=== PATIENT | male | born 1945 | race Caucasian/White ===

== ENCOUNTER → 2016-06-26 | Outpatient (CLI) | payer OTHER, MEDICARE | LOC: FIMAGING 16:13 | PROVIDERS: ATTEND Registered Nurse | DX: M51.36 Other intervertebral disc degeneration, lumbar region (principal) ==

== ENCOUNTER → 2016-07-09 | Outpatient (CLI) | payer OTHER, MEDICARE | LOC: FIMAGING 16:12 | PROVIDERS: ATTEND Registered Nurse | DX: M47.14 Other spondylosis with myelopathy, thoracic region (principal); K44.9 Diaphragmatic hernia without obstruction or gangrene ==

== ENCOUNTER 2016-07-25 08:45 | Inpatient (IN) | payer OTHER, MEDICARE ==
[2016-07-25 09:17] LABS: % IMMATURE GRANULYOCYTES 0.4 % (0.0-1.1); ABSOLUTE IMMATURE GRANULOCYTES 0.06 10^3/uL (0.00-0.10); ADD DIFF? NO; ADD MORPH? NO; ADD SCAN? NO; ATYPICAL LYMPHOCYTE FLAG 0 (0-99); FRAGMENT RBC FLAG 0 (0-99); HEMATOCRIT 44.3 % (40.0-51.0); HEMOGLOBIN 15.9 g/dL (13.7-17.5); LEFT SHIFT FLG 20 (0-99); LIPEMIA HEMOLYSIS FLAG 90 (0-99); MEAN CELL HEMOGLOBIN CONCENTR. 35.9 g/dL (32.4-36.7); MEAN CELL VOLUME 89.1 fL (81.5-99.8); MEAN PLATELET VOLUME 9.3 fL (8.7-11.7); PLATELET CLUMPS FLAG 0 (0-99); PLATELET COUNT 178 10^3/uL (150-400); RED BLOOD CELL COUNT 4.97 10^6/uL (4.40-6.38)
[2016-07-25 09:36] LABS: ANION GAP 12 mEq/L (8-16); CALCIUM 9.5 mg/dL (8.5-10.4); CARBON DIOXIDE 25 mEq/l (22-31); CHLORIDE 101 mEq/L (97-110); CREATININE 0.8 mg/dL (0.7-1.3); GLOMERULAR FILTRATION RATE > 60; GLUCOSE 92 mg/dL (70-100); SODIUM 138 mEq/L (134-144)
--- NOTE | 2016-07-25 09:40 | EDPHY ---
H & P Stated Complaint: FEVER BACK PAIN, WAS TO SEE DR RHODES. Time Seen by Provider: 07/25/16 09:02 HPI/ROS: CHIEF COMPLAINT: Fever, nausea, lethargy HISTORY OF PRESENT ILLNESS: The patient has a complicated past medical history with a reported history of a chronic tick borne infection. The patient presents to the ED today with complaints of fever, nausea and lethargy for the past 2 days. The patient denies cough, sore throat, dysuria or vomiting. The patient does have a history of a chronic tick borne infection by his report. Patient reportedly is intolerance antibiotics secondary to his propensity to develop a febrile antibiotic reaction. REVIEW OF SYSTEMS: A comprehensive 10 point review of systems is otherwise negative aside from elements mentioned in the history of present illness. Source: Patient Exam Limitations: No limitations - Personal History Current Tetanus/Diphtheria Vaccine: Yes Current Tetanus Diphtheria and Acellular Pertussis (TDAP): Yes - Medical/Surgical History Hx Asthma: No Hx Chronic Respiratory Disease: No Hx Diabetes: No Hx Cardiac Disease: No Hx Renal Disease: No Hx Cirrhosis: No Hx Alcoholism: No Hx HIV/AIDS: No Hx Splenectomy or Spleen Trauma: No Other PMH: Lyme Disease, HIATAL HERNIA. HERNIA REPAIR, clavicle fracture - Social History Smoking Status: Never smoked - Physical Exam Exam: General Appearance: Alert, no distress Eyes: Pupils equal and round no pallor or injection ENT, Mouth: Dry mucous membranes Respiratory: There are no retractions, lungs are clear to auscultation Cardiovascular: Regular rate and rhythm Gastrointestinal: Abdomen is soft and nontender, no masses, bowel sounds normal Neurological: A&O, normal motor function, normal sensory exam, normal cranial nerves Skin: Warm and dry, no rashes Musculoskeletal: Neck is supple nontender Extremities: symmetrical, full range of motion Constitutional: Initial Vital Signs Temperature (C) 37.9 C 07/25/16 08:48 Heart Rate 103 H 07/25/16 08:48 Respiratory Rate 18 07/25/16 08:48 Blood Pressure 97/67 L 07/25/16 08:48 O2 Sat (%) 91 L 07/25/16 08:48 O2 Delivery Mode Nasal Cannula O2 (L/minute) 2 Allergies/Adverse Reactions: No Known Allergies Allergy (Unverified 09/26/13 14:24) Home Medications: Medication Instructions Recorded Bactrim DS 09/26/13 Hydroxy Chloriphen 09/26/13 Mepron 150 MG/ML 60 ML (RX) 09/26/13 Nystatin 09/26/13 Zithromax 09/26/13 oxyCODONE/APAP [Percocet 1 - 2 tab PO Q4H PRN #20 tab 09/26/13 5325 (RX)] Medical Decision Making ED Course/Re-evaluation: The patient presents to the ED with an acute febrile illness. He has a fairly complicated past history with a reported history of a chronic tick-borne infection. The patient's workup in the emergency department does demonstrate leukocytosis. The patient is noted to have a low-grade fever the patient is noted to have no significant vital sign abnormalities. I did consult with Dr. Stanton Lombardi who saw the patient from Infectious Disease. At this point time the patient presents to the ED with a fever without source. The patient will be admitted to the hospital for observation this evening. No antibiotics will be started per Infectious Disease recommendation. We will follow his fever curve and blood cultures this evening. The patient will be admitted to the [facility] under the care of the hospitalist. The patient will be admitted by Dr. Serrano. Differential Diagnosis: Differential diagnosis considered includes bacteremia, urinary tract infection, parasitemia, medication reaction, viral syndrome - Data Points Laboratory Results: Laboratory Results 07/25/16 09:05 07/25/16 09:05 07/25/16 07/25/16 07/25/16 10:05 10:00 09:05 WBC RBC Hgb Hct MCV MCH MCHC RDW Plt Count MPV Neut % (Auto) Lymph % (Auto) [place] % (Auto) Eos % (Auto) Baso % (Auto) Nucleat RBC Rel Count Absolute Neuts (auto) Absolute Lymphs (auto) Absolute Monos (auto) Absolute Eos (auto) Absolute Basos (auto) Absolute Nucleated RBC Immature Gran % Immature Gran # VBG Lactic Acid 1.1 mmol/L mmol/L (0.7-2.1) Sodium Potassium Chloride Carbon Dioxide Anion Gap BUN Creatinine Estimated GFR Glucose Calcium Total Bilirubin 0.7 mg/dL mg/dL (0.1-1.4) Conjugated Bilirubin 0.4 mg/dL mg/dL (0.0-0.5) Unconjugated Bilirubin 0.3 mg/dL mg/dL (0.0-1.1) AST 34 IU/L IU/L (17-59) ALT 40 IU/L IU/L (21-72) Alkaline Phosphatase 46 IU/L IU/L (38-126) Total Protein 6.5 g/dL g/dL (6.3-8.2) Albumin 4.0 g/dL g/dL (3.5-5.0) Urine Color COLIN Urine Appearance HAZY Urine pH 5.0 (5.0-7.5) Ur Specific [place] 1.014 (1.002-1.030) Urine Protein NEGATIVE (NEGATIVE) Urine Ketones TRACE H (NEGATIVE) Urine Blood NEGATIVE (NEGATIVE) Urine Nitrate NEGATIVE (NEGATIVE) Urine Bilirubin NEGATIVE (NEGATIVE) Urine Urobilinogen NEGATIVE EU EU (0.2-1.0) Ur Leukocyte Esterase NEGATIVE (NEGATIVE) Ur Culture Indicated? NOT INDICATED (NI) Urine Glucose NEGATIVE (NEGATIVE) 07/25/16 07/25/16 09:05 09:05 WBC 15.48 10^3/uL H 10^3/uL (3.80-9.50) RBC 4.97 10^6/uL 10^6/uL (4.40-6.38) Hgb 15.9 g/dL g/dL (13.7-17.5) Hct 44.3 % % (40.0-51.0) MCV 89.1 fL fL (81.5-99.8) MCH 32.0 pg pg (27.9-34.1) MCHC 35.9 g/dL g/dL (32.4-36.7) RDW 13.0 % % (11.5-15.2) Plt Count 178 10^3/uL 10^3/uL (150-400) MPV 9.3 fL fL (8.7-11.7) Neut % (Auto) 93.3 % H % (39.3-74.2) Lymph % (Auto) 4.1 % L % (15.0-45.0) [place] % (Auto) 1.7 % L % (4.5-13.0) Eos % (Auto) 0.3 % L % (0.6-7.6) Baso % (Auto) 0.2 % L % (0.3-1.7) Nucleat RBC Rel Count 0.0 % % (0.0-0.2) Absolute Neuts (auto) 14.45 10^3/uL H 10^3/uL (1.70-6.50) Absolute Lymphs (auto) 0.63 10^3/uL L 10^3/uL (1.00-3.00) Absolute Monos (auto) 0.26 10^3/uL L 10^3/uL (0.30-0.80) Absolute Eos (auto) 0.05 10^3/uL 10^3/uL (0.03-0.40) Absolute Basos (auto) 0.03 10^3/uL 10^3/uL (0.02-0.10) Absolute Nucleated RBC 0.00 10^3/uL 10^3/uL (0-0.01) Immature Gran % 0.4 % % (0.0-1.1) Immature Gran # 0.06 10^3/uL 10^3/uL (0.00-0.10) VBG Lactic Acid Sodium 138 mEq/L mEq/L (134-144) Potassium 4.0 mEq/L mEq/L (3.5-5.2) Chloride 101 mEq/L mEq/L (97-110) Carbon Dioxide 25 mEq/l mEq/l (22-31) Anion Gap 12 mEq/L mEq/L (8-16) BUN 19 mg/dL mg/dL (7-23) Creatinine 0.8 mg/dL mg/dL (0.7-1.3) Estimated GFR > 60 Glucose 92 mg/dL mg/dL (70-100) Calcium 9.5 mg/dL mg/dL (8.5-10.4) Total Bilirubin Conjugated Bilirubin Unconjugated Bilirubin AST ALT Alkaline Phosphatase Total Protein Albumin Urine Color Urine Appearance Urine pH Ur Specific [place] Urine Protein Urine Ketones Urine Blood Urine Nitrate Urine Bilirubin Urine Urobilinogen Ur Leukocyte Esterase Ur Culture Indicated? Urine Glucose Medications Given: Discontinued Medications Sodium Chloride (Ns) 1,000 mls @ 0 mls/hr IV ONCE ONE PRN Reason: Wide Open Stop: 07/25/16 10:01 Last Admin: 07/25/16 10:00 Dose: 1,000 mls Sodium Chloride (Ns) 1,000 mls @ 0 mls/hr IV ONCE ONE PRN Reason: Wide Open Stop: 07/25/16 10:44 Last Admin: 07/25/16 10:47 Dose: 1,000 mls Departure - Departure Disposition: [facility] Inpatient Acute Clinical Impression: Febrile illness, acute Condition: Good Referrals: Jonathan Franco DO [Primary Care Provider] - As per Instructions
[2016-07-25] MEDS ORDERED: NS 1,000 ML IV ONE ×2 (10:00→10:43)
[2016-07-25 10:06] LABS: COLOR AMBER; LEUKOCYTE ESTERASE,URINE NEGATIVE (NEGATIVE); NITRITE,URINE NEGATIVE (NEGATIVE)
[2016-07-25 10:34] LABS: BILIRUBIN,TOTAL 0.7 mg/dL (0.1-1.4); BILIRUBIN-CONJUGATED 0.4 mg/dL (0.0-0.5); BILIRUBIN-UNCONJUGATED 0.3 mg/dL (0.0-1.1); TOTAL PROTEIN 6.5 g/dL (6.3-8.2)
[2016-07-25] MEDS: HYDROmorphONE/DILAUDID 1 MG/ML SYR IVP PRN ×3 (14:22→21:25)
[2016-07-25] MEDS: oxyCODONE IR 5 MG TAB PO SCH ×2 (15:03→21:24)
--- NOTE | 2016-07-25 16:31 | GCON ---
[f rep st] CONSULTATION INPATIENT INFECTIOUS DISEASE CONSULTATION REFERRING PHYSICIAN: Unruly Al MD REASON FOR REFERRAL: Rigors and fever. HISTORY OF PRESENT ILLNESS: Patient is a 70-year-old male who [facility] at 9:40. Patient related having 24 hours of fever, lethargy, nausea, an d rigors. He denies any significant respiratory symptoms or urinary symptoms. The history is compl icated by a chronic overlay of perceived long-term Lyme disease and chronic bartonellosis and babesi osis. He is not on any antibiotics for these offered diagnoses due to the fact that he has multiple antibiotic sensitivities. 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 The patient denies any focal symptoms or pain. He is very nervous about having to require an tibiotic use as he is worried that antibiotics themselves will cause a fatal reaction. PAST MEDICAL HISTORY: 1. "Chronic Lyme disease and associated tick borne illnesses.". 2. Multiple antibiotic sensitivities. 3. Degenerative disk disease and kyphosis of the spine. 4. Severe hiatal hernia. PAST SURGICAL HISTORY: 1. Status post ORIF of clavicle fracture. 2. Status post hernia repair. ANTIBIOTICS: None currently. ALLERGIES: The patient has no antibiotic allergies listed although he claims severe sensitivity to all antibiotics tried. SOCIAL HISTORY: Patient is . No significant tobacco, alcohol, or drug use noted. FAMILY HISTORY: Reviewed but noncontributory. REVIEW OF SYSTEMS: Other than that detailed above in history of present illness, comprehensive 10-s ystem review is negative. PHYSICAL EXAMINATION: VITAL SIGNS: Temperature maximum is 37, 9, temperature current is 36.9, hear t rate is 77, respiratory rate is 20, blood pressure is 109/65. GENERAL: Patient is a well-formed, well-nourished, older male in no acute distress. He is mildly toxic in appearance. He is alert an d oriented x3. He is pleasant in demeanor. HEENT: Normocephalic for age. Atraumatic. No scleral icterus. No oral lesion or drainage from the nares. Eyes: Lids and conjunctivae are within normal limits. Pupils are equal, round, bilaterally. NECK: Supple without meningismus. LUNGS: Clear to auscultation bilaterally with good effort. HEART: Regular rate and rhythm. No murmur, rub, or gallop heard. No significant peripheral edema. ABDOME N: Soft, nontender, no masses. SKIN: Warm and dry to the touch. No rash or lesions seen. MUSCUL OSKELETAL: No muscle tenderness is noted. No joint enlargement, effusion, or arthritis is seen. N EURO: Cranial nerves 2-12 seem to be intact. Peripheral sensation seems intact in extremities. LABORATORY DATA: The patient has a CBC dated 07/25/2016, shows a white blood cell count of 15.5, he moglobin of 15.9, hematocrit of 44.3, platelet count 178. Differential is left shifted with 93% seg mented neutrophils. Serum chemistries on 07/25/2016 are all within normal limits. AST is 34, ALT i s 40, creatinine is 0.8. Urinalysis on 07/25/2016 is normal apart from a trace amount of urine keto jacqueline. Venous lactic acid is with normal at 1.1. MICROBIOLOGIC DATA: Patient has blood cultures dated 07/25/2016, which are pending. ASSESSMENT: Fever and rigors, likely a viral syndrome but of unclear etiology. At this point given the patient's symptoms and anxieties, will admit for observation. Would be interested to see if th e patient has positive blood cultures indicating an occult bacteremia how we will be able to convinc e the patient to be treated with antibiotics for that. We will address this problem if it comes abo az. In the meantime, we will control symptoms and monitor his vital signs. PLAN: 1. Symptom control. 2. Follow test results and blood culture results. 3. No empiric antibiotics. /[id number]/MODL
[2016-07-25] MEDS ORDERED: NON-FORMULARY NEW DRUG (Zolpidem Tartrate [Ambien 10 Mg] 10 MG) PO PRN (17:14)
[2016-07-25] MEDS ORDERED: ONDANSETRON 4 MG/2 ML VIAL IVP PRN (17:16)
[2016-07-25] MEDS ORDERED: ACETAMINOPHEN 325 MG TAB PO PRN (17:16)
[2016-07-25] MEDS ORDERED: ZOLPIDEM TARTRATE 5 MG TAB PO PRN (17:21)
[2016-07-25] MEDS ORDERED: NYSTATIN SUSP 500000 UNIT/5 ML UDCUP PO SCH (17:30)
--- NOTE | 2016-07-25 18:04 | PDGENHP ---
History and Physical - Chief Complaint Fever, Rigors, Body Aches - History of Present Illness This is a 70 yo male who presented to the ED reporting fever of 102, Rigors, and generalized pain and fatigue. He was evaluated by ID and is being admitted for observation. In the ED a UA was unremarkable. CXR was not obtained as he is on RA and no Resp sxs. CBC was consistent with Leukocytosis. He has been afebrile since arriving here. He reports a long hx of lyme disease, bartonellosis, and babesiosis which he and his report they self diagnosed. He gets his care from Dr. Mell oslis in [place]. He reports multiple antibiotic sensitivities. He denies CP, SOB, cough, leg swelling, palpitations, n/v/d, diaphoresis, abd pain, urinary sx's, flank pain. He was not started on abx. He reports generalized pain which is more severe than his usual chronic pain. It is generalized. He cannot localize it. PMHx: Reported lyme disease, bartonellosis, and babesiosis. Antibiotic sensitivity Hiatal hernia Depression Insomnia Adrenal Insufficiency Chronic Pain syndrome PSHx: ORIF of clavicle fracture Hernia repari Soc: No T/E/I FmHx: reviewed but not contributory All/Meds: reviewed, see med rec Labs: Leukocytosis, UA negative History Information - Allergies/Home Medication List Allergies/Adverse Reactions: No Known Allergies Allergy (Unverified 09/26/13 14:24) Home Medications: Nystatin [Mycostatin] 1,000,000 unit PO BID 09/26/13 [Last Taken 07/24/16] Citalopram [CeleXA] 20 mg PO DAILY 07/25/16 [Last Taken 07/24/16] Herbals/Supplements -Info Only 1 ea PO DAILY 07/25/16 [Last Taken Unknown] Hydrocortisone [Cortef 10 mg (*)] 10 mg PO DAILY 07/25/16 [Last Taken 07/24/16] LORazepam [Ativan (*)] 0.5 mg PO BID PRN 07/25/16 [Last Taken 07/24/16] Magnesium Hydroxide [Milk of Magnesia] 30 ml PO HS 07/25/16 [Last Taken 07/24/16 ] Nature-Throid T3 48.75mg 48.75 mg PO DAILY 07/25/16 [Last Taken 07/24/16] Oxycodone HCl [Dazidox] 10 mg PO TID 07/25/16 [Last Taken 07/24/16] Zolpidem Tartrate [Ambien 10 mg] 10 mg PO HS PRN 07/25/16 [Last Taken Unknown] traZODone [traZODONE 50MG (*)] 100 mg PO HS 07/25/16 [Last Taken Unknown] I have personally reviewed and updated: family history, medical history, social history, surgical history - Social History Smoking Status: Never smoked Review of Systems ROS: 10pt was reviewed & negative except for what was stated in HPI & below Physical Exam Temp Pulse Resp BP Pulse Ox 36.9 C 77 20 109/65 93 07/25/16 14:04 07/25/16 14:04 07/25/16 14:04 07/25/16 14:04 07/25/16 14:04 Constitutional: no apparent distress, appears nourished, not in pain Eyes: PERRL, anicteric sclera, EOMI Ears, Nose, Mouth, Throat: moist mucous membranes, hearing normal, ears appear normal, no oral mucosal ulcers Cardiovascular: regular rate and rhythym, no murmur, rub, or gallop, No edema Respiratory: no respiratory distress, no rales or rhonchi, clear to auscultation Gastrointestinal: normoactive bowel sounds, soft, non-tender abdomen, no palpable masses Genitourinary: no bladder fullness Skin: warm, normal color, No mottled Neurologic: AAOx3, sensation intact bilaterally Psychiatric: interacting appropriately Lymph, Heme, Immunologic: no cervical LAD Lab Data & Imaging Review 07/25/16 09:05 07/25/16 09:05 WBC 15.48 10^3/uL (3.80-9.50) H 07/25/16 09:05 RBC 4.97 10^6/uL (4.40-6.38) 07/25/16 09:05 Hgb 15.9 g/dL (13.7-17.5) 07/25/16 09:05 Hct 44.3 % (40.0-51.0) 07/25/16 09:05 MCV 89.1 fL (81.5-99.8) 07/25/16 09:05 MCH 32.0 pg (27.9-34.1) 07/25/16 09:05 MCHC 35.9 g/dL (32.4-36.7) 07/25/16 09:05 RDW 13.0 % (11.5-15.2) 07/25/16 09:05 Plt Count 178 10^3/uL (150-400) 07/25/16 09:05 MPV 9.3 fL (8.7-11.7) 07/25/16 09:05 Neut % (Auto) 93.3 % (39.3-74.2) H 07/25/16 09:05 Lymph % (Auto) 4.1 % (15.0-45.0) L 07/25/16 09:05 [place] % (Auto) 1.7 % (4.5-13.0) L 07/25/16 09:05 Eos % (Auto) 0.3 % (0.6-7.6) L 07/25/16 09:05 Baso % (Auto) 0.2 % (0.3-1.7) L 07/25/16 09:05 Nucleat RBC Rel Count 0.0 % (0.0-0.2) 07/25/16 09:05 Absolute Neuts (auto) 14.45 10^3/uL (1.70-6.50) H 07/25/16 09:05 Absolute Lymphs (auto) 0.63 10^3/uL (1.00-3.00) L 07/25/16 09:05 Absolute Monos (auto) 0.26 10^3/uL (0.30-0.80) L 07/25/16 09:05 Absolute Eos (auto) 0.05 10^3/uL (0.03-0.40) 07/25/16 09:05 Absolute Basos (auto) 0.03 10^3/uL (0.02-0.10) 07/25/16 09:05 Absolute Nucleated RBC 0.00 10^3/uL (0-0.01) 07/25/16 09:05 Immature Gran % 0.4 % (0.0-1.1) 07/25/16 09:05 Immature Gran # 0.06 10^3/uL (0.00-0.10) 07/25/16 09:05 VBG Lactic Acid 1.1 mmol/L (0.7-2.1) 07/25/16 10:05 Sodium 138 mEq/L (134-144) 07/25/16 09:05 Potassium 4.0 mEq/L (3.5-5.2) 07/25/16 09:05 Chloride 101 mEq/L (97-110) 07/25/16 09:05 Carbon Dioxide 25 mEq/l (22-31) 07/25/16 09:05 Anion Gap 12 mEq/L (8-16) 07/25/16 09:05 BUN 19 mg/dL (7-23) 07/25/16 09:05 Creatinine 0.8 mg/dL (0.7-1.3) 07/25/16 09:05 Estimated GFR > 60 07/25/16 09:05 Glucose 92 mg/dL (70-100) 07/25/16 09:05 Calcium 9.5 mg/dL (8.5-10.4) 07/25/16 09:05 Total Bilirubin 0.7 mg/dL (0.1-1.4) 07/25/16 09:05 Conjugated Bilirubin 0.4 mg/dL (0.0-0.5) 07/25/16 09:05 Unconjugated Bilirubin 0.3 mg/dL (0.0-1.1) 07/25/16 09:05 AST 34 IU/L (17-59) 07/25/16 09:05 ALT 40 IU/L (21-72) 07/25/16 09:05 Alkaline Phosphatase 46 IU/L (38-126) 07/25/16 09:05 Total Protein 6.5 g/dL (6.3-8.2) 07/25/16 09:05 Albumin 4.0 g/dL (3.5-5.0) 07/25/16 09:05 Urine Color COLIN 07/25/16 10:00 Urine Appearance HAZY 07/25/16 10:00 Urine pH 5.0 (5.0-7.5) 07/25/16 10:00 Ur Specific [place] 1.014 (1.002-1.030) 07/25/16 10:00 Urine Protein NEGATIVE (NEGATIVE) 07/25/16 10:00 Urine Ketones TRACE (NEGATIVE) H 07/25/16 10:00 Urine Blood NEGATIVE (NEGATIVE) 07/25/16 10:00 Urine Nitrate NEGATIVE (NEGATIVE) 07/25/16 10:00 Urine Bilirubin NEGATIVE (NEGATIVE) 07/25/16 10:00 Urine Urobilinogen NEGATIVE EU (0.2-1.0) 07/25/16 10:00 Ur Leukocyte Esterase NEGATIVE (NEGATIVE) 07/25/16 10:00 Ur Culture Indicated? NOT INDICATED (NI) 07/25/16 10:00 Urine Glucose NEGATIVE (NEGATIVE) 07/25/16 10:00 Assessment & Plan Assessment: Febrile illness, acute (Acute) Plan: #Fevers #Rigors #Leukocytosis Plan: Etiology is unclear. He has a normal exam. Suspect viral syndrome. He has received IVF in the E.D. he is hemodynamically stable and looks Euvolemic. I will not continue further IVF. His main concert at this time is that we continue his home medication mainly his pain meds which i have restarted. He also reports a hx of adrenal insufficiency and has been on Hydrocortisone for years. For now we will continue his dose of 10 mg daily. No stress dose unless there is evidence of active infection of becomes hemodynamically compromised. ID following f/u cx's DVT proph: SCD's Full code
[2016-07-25] MEDS: ONDANSETRON DISINTEGRATING 4 MG TAB PO PRN (19:33)
[2016-07-25] MEDS: LORazepam 0.5 MG TAB PO PRN (19:45)
[2016-07-25] MEDS: MAGNESIUM HYDROXIDE 30 ML UDCUP PO SCH (21:24)
[2016-07-25] MEDS: NYSTATIN 500000 UNIT PO SCH (21:26)
[2016-07-25] MEDS: traZODone 50 MG TAB PO SCH (23:36)
[2016-07-26] MEDS ORDERED: NS BOLUS 1000 ML (Wide open) IV ONE (06:00)
[2016-07-26 06:16] LABS: % IMMATURE GRANULYOCYTES 0.9 % (0.0-1.1); HEMATOCRIT 36.7 % (40.0-51.0); HEMOGLOBIN 12.8 g/dL (13.7-17.5); MEAN CELL HEMOGLOBIN 32.1 pg (27.9-34.1); MEAN CELL HEMOGLOBIN CONCENTR. 34.9 g/dL (32.4-36.7); MEAN PLATELET VOLUME 9.3 fL (8.7-11.7); PLATELET COUNT 149 10^3/uL (150-400); RED BLOOD CELL COUNT 3.99 10^6/uL (4.40-6.38); RED CELL DISTRIBUTION WIDTH 13.2 % (11.5-15.2)
[2016-07-26 06:17] LABS: ABSOLUTE IMMATURE GRANULOCYTES 0.23 10^3/uL (0.00-0.10); ADD DIFF? NO; ADD MORPH? NO; ADD SCAN? NO; ATYPICAL LYMPHOCYTE FLAG 0 (0-99); FRAGMENT RBC FLAG 0 (0-99); LEFT SHIFT FLG 40 (0-99); LIPEMIA HEMOLYSIS FLAG 90 (0-99); PLATELET CLUMPS FLAG 0 (0-99)
[2016-07-26 06:35] LABS: ALANINE AMINOTRANSFERASE 38 IU/L (21-72); ALBUMIN 2.9 g/dL (3.5-5.0); ALKALINE PHOSPHATASE 41 IU/L (38-126); ANION GAP 9 mEq/L (8-16); ASPARTATE AMINOTRANSFERASE 27 IU/L (17-59); CALCIUM 8.5 mg/dL (8.5-10.4); CARBON DIOXIDE 23 mEq/l (22-31); CHLORIDE 103 mEq/L (97-110); CREATININE 0.8 mg/dL (0.7-1.3); GLOMERULAR FILTRATION RATE > 60; GLUCOSE 87 mg/dL (70-100); MAGNESIUM 1.9 mg/dL (1.6-2.3); POTASSIUM 4.3 mEq/L (3.5-5.2); SODIUM 135 mEq/L (134-144); TOTAL PROTEIN 5.1 g/dL (6.3-8.2)
[2016-07-26] MEDS ORDERED: HYDROCORTISONE 100 MG/2 ML VIAL IVP SCH (07:16)
[2016-07-26] MEDS: CITALOPRAM 20 MG TAB PO SCH (08:23)
[2016-07-26] MEDS: oxyCODONE IR 5 MG TAB PO SCH ×3 (08:23→21:38)
[2016-07-26] MEDS: NYSTATIN 500000 UNIT PO SCH ×2 (08:24→21:39)
[2016-07-26] MEDS: LORazepam 0.5 MG TAB PO PRN ×2 (08:30→20:16)
[2016-07-26] MEDS ORDERED: NYSTATIN 1000000 UNIT PO SCH (09:00)
[2016-07-26] MEDS ORDERED: HYDROCORTISONE 10 MG TAB PO SCH (09:00)
[2016-07-26] MEDS ORDERED: Herbals/Supplements -Info Only PO SCH (09:00)
[2016-07-26] MEDS: NYSTATIN SUSP 500000 UNIT/5 ML UDCUP PO SCH ×2 (09:00→21:41)
[2016-07-26] MEDS ORDERED: MAGNESIUM HYDROXIDE 30 ML UDCUP PO PRN (11:44)
[2016-07-26] MEDS: HYDROmorphONE/DILAUDID 1 MG/ML SYR IVP PRN (12:02)
[2016-07-26] MEDS: MAGNESIUM HYDROXIDE 30 ML UDCUP PO SCH ×2 (12:02→21:38)
--- NOTE | 2016-07-26 15:15 | HOSPPROG ---
Hospitalist Progress Note Assessment/Plan: Plan: #Fevers #Rigors #Leukocytosis Plan: Etiology is unclear. He has a normal exam. Suspect viral syndrome. He he is hemodynamically stable and looks Euvolemic. I will not continue further IVF. CXR home medication Reviewed with Stanton Lombardi Labs ordered ID following f/u cx's DVT proph: SCD's Full code Subjective: Still feeling terrible but better then yesterday. at bedside. Objective: Vital Signs Temp Pulse Resp BP Pulse Ox 36.5 C 74 18 105/59 L 93 07/26/16 11:57 07/26/16 11:57 07/26/16 11:57 07/26/16 11:57 07/26/16 11:57 - Physical Exam Constitutional: appears nourished, chronically ill appearing, uncomfortable Eyes: PERRL, anicteric sclera, EOMI Ears, Nose, Mouth, Throat: moist mucous membranes, hearing normal, ears appear normal Cardiovascular: No JVD, No tachycardia, No edema Respiratory: no respiratory distress, no rales or rhonchi, reduced air movement Gastrointestinal: No tenderness, No ascites, No guarding Skin: warm, normal color, erythema Musculoskeletal: normal joint ROM, muscular tenderness, generalized weakness Neurologic: AAOx3 Psychiatric: not encephalopathic, thought process linear, anxious ICD10 Worksheet Patient Problems: Problems Problem Status Onset Febrile illness, acute Acute
--- NOTE | 2016-07-26 17:55 | PCMIDPN ---
Assessment/Plan: Assessment: Febrile syndrome with significant leukocytosis. patient has not had a significant temperature elevation in the last 24 hours however his white blood cell count is increased to 24,000. his symptoms clinically are improved as his myalgias and general skeletal pain is have decreased. I suspect that this is going to be viral in origin especially as the bacterial cultures of his blood have not grown anything in the 1st 24 hours of incubation. We will continue to monitor the cultures and treat his symptoms overnight again. If he makes continued improvement till tomorrow I am hopeful that he can be discharged at that point. Plan: 1. continue to observe off antibiotics. 2. Continue to follow blood cultures. 3. Continue follow fever curve. 4. Obtain random cortisol level to evaluate for adrenal crisis. I do not believe this is the situation. 07/26/16 17:52 Subjective: Patient is feeling better today he is decreased muscle as well as skeletal pain. Still with subjective fevers although objective temperature measurements max at 37.8 degree C. Objective: no antibiotics. Vital Signs Temp Pulse Resp BP Pulse Ox 36.4 C 66 16 108/74 94 07/26/16 16:00 07/26/16 16:00 07/26/16 16:00 07/26/16 16:00 07/26/16 16:00 - Physical Exam General Appearance: WD/WN, alert, no apparent distress, non-toxic Respiratory: lungs clear, normal breath sounds, No respiratory distress Cardiac/Chest: regular rate, rhythm, No tachycardia Abdomen: non-tender, soft, No mass Skin: normal color, warm/dry, No rash Neuro/Psych: alert, normal mood/affect, oriented x 3 ICD10 Worksheet Patient Problems: Problems Problem Status Onset Febrile illness, acute Acute
[2016-07-26] MEDS: MAGNESIUM HYDROXIDE 30 ML UDCUP PO PRN (18:45)
[2016-07-26] MEDS: ONDANSETRON DISINTEGRATING 4 MG TAB PO PRN (20:16)
[2016-07-26] MEDS: traZODone 50 MG TAB PO SCH (22:35)
[2016-07-27] MEDS: oxyCODONE IR 5 MG TAB PO SCH ×3 (08:22→22:31)
[2016-07-27] MEDS: NYSTATIN 500000 UNIT PO SCH ×2 (08:22→20:19)
[2016-07-27] MEDS: CITALOPRAM 20 MG TAB PO SCH (08:22)
[2016-07-27] MEDS: NYSTATIN SUSP 500000 UNIT/5 ML UDCUP PO SCH ×2 (08:50→20:15)
[2016-07-27 09:12] LABS: HEMATOCRIT 37.3 % (40.0-51.0); MEAN CELL HEMOGLOBIN 32.1 pg (27.9-34.1); MEAN CELL HEMOGLOBIN CONCENTR. 34.9 g/dL (32.4-36.7); MEAN CELL VOLUME 92.1 fL (81.5-99.8); RED BLOOD CELL COUNT 4.05 10^6/uL (4.40-6.38); RED CELL DISTRIBUTION WIDTH 13.3 % (11.5-15.2)
[2016-07-27] MEDS: THYROID PO SCH (12:36)
[2016-07-27] MEDS: DIAZEPAM 5 MG TAB PO PRN (12:39)
--- NOTE | 2016-07-27 12:39 | HOSPPROG ---
Hospitalist Progress Note Assessment/Plan: 70y male with chronic medical problems. Reviewed with Dr Lombardi. Plan: #RUL PNA Likely due to aspiration potentially related to hiatal hernia reviewed with Dr Lombardi treat with Augmentin 5 days appreciate ID input #Fevers related to PNA #Rigors better #Leukocytosis improved #Hiatal Hernia needs outpatient follow up pt chose Dr Robel Robertson defer to outpatient workup follow mechanical precautions, i.e up right, elevated bed etc #Chronic stage 3 adrenal disease per pt report cortisol level normal, off cortef for days restart cortef per pt request fu outpt #Anxiety valium PRN ativan #Per pt hx of lyme disease and bebesiois stable fu outpt f/u cx's DVT proph: SCD's Full code #Dispo home in am with PO abx FU Dr Robel Robertson for hernia repair Subjective: Very anxious. Feeling better then yesterday. at bedside. C/O night sweats last night. No pain currently. Objective: Vital Signs Temp Pulse Resp BP Pulse Ox 36.7 C 70 16 135/71 H 95 07/27/16 11:37 07/27/16 11:37 07/27/16 11:37 07/27/16 11:37 07/27/16 11:37 Laboratory Results 07/27/16 04:59 - Physical Exam Constitutional: not in pain, chronically ill appearing, cachectic Eyes: PERRL, anicteric sclera, EOMI Ears, Nose, Mouth, Throat: moist mucous membranes, hearing normal, ears appear normal Cardiovascular: No JVD, No tachycardia, No edema Respiratory: no respiratory distress, no rales or rhonchi, reduced air movement Gastrointestinal: No tenderness, No ascites, No guarding Skin: warm, normal color, No erythema Musculoskeletal: full muscle strength, normal joint ROM, no joint effusions Neurologic: AAOx3 Psychiatric: not encephalopathic, thought process linear, anxious, poor insight ICD10 Worksheet Patient Problems: Problems Problem Status Onset Febrile illness, acute Acute
[2016-07-27] MEDS: AMOXICILLIN/CLAVULANATE POT 875/125 MG TAB PO SCH ×2 (12:40→20:19)
[2016-07-27] MEDS: MAGNESIUM HYDROXIDE 30 ML UDCUP PO PRN (15:18)
[2016-07-27 16:03] LABS: IMMUNOGLOBULIN A 110 mg/dL (61 - 356); IMMUNOGLOBULIN G 611 mg/dL (767 - 1590); IMMUNOGLOBULIN M 82 mg/dL (37 - 286)
--- NOTE | 2016-07-27 16:55 | PCMIDPN ---
Assessment/Plan: Assessment: Right upper lobe pneumonia. Chest x-ray reveals patchy infiltrate. Blood cultures remain negative. Long discussion with patient and he agrees to oral Augmentin 875 mg p.o. twice daily with premedication with Valium. Will need to observe him given his history of severe reactions to other antibiotics. If he is stable tomorrow we will then discharge. Plan: 1. Augmentin 875 mg p.o. twice daily 1st dose now. 2. Follow clinical response. 07/26/16 17:52 07/27/16 16:53 Subjective: Patient is resting in his hospital bed. He appears moderately anxious. He states he feels still feels ill although is not in as much pain as he was 2 days ago upon admission. Occasional cough with scant production. Objective: No antibiotics Vital Signs Temp Pulse Resp BP Pulse Ox 36.7 C 70 16 135/71 H 95 07/27/16 11:37 07/27/16 11:37 07/27/16 11:37 07/27/16 11:37 07/27/16 11:37 Laboratory Results 07/27/16 04:59 - Physical Exam General Appearance: WD/WN, alert, apparent distress (Moderately agitated secondary to anxiety), non-toxic Respiratory: lungs clear, normal breath sounds, No respiratory distress Cardiac/Chest: regular rate, rhythm, No tachycardia Skin: normal color, warm/dry, No rash Neuro/Psych: alert, normal mood/affect, oriented x 3 ICD10 Worksheet Patient Problems: Problems Problem Status Onset Febrile illness, acute Acute
[2016-07-27] MEDS: LORazepam 0.5 MG TAB PO PRN (20:19)
[2016-07-27] MEDS: MAGNESIUM HYDROXIDE 30 ML UDCUP PO SCH (20:19)
[2016-07-27] MEDS: traZODone 50 MG TAB PO SCH (22:31)
[2016-07-28 08:05] VITALS: RESP 18; TEMP 98
[2016-07-28] MEDS ORDERED: HYDROCORTISONE 10 MG TAB PO SCH (09:00)
[2016-07-28] MEDS: DIAZEPAM 5 MG TAB PO PRN (09:24)
[2016-07-28] MEDS: NYSTATIN 500000 UNIT PO SCH (09:25)
[2016-07-28] MEDS: oxyCODONE IR 5 MG TAB PO SCH (09:25)
[2016-07-28] MEDS: CITALOPRAM 20 MG TAB PO SCH (09:25)
[2016-07-28] MEDS: THYROID PO SCH (09:27)
[2016-07-28] MEDS: AMOXICILLIN/CLAVULANATE POT 875/125 MG TAB PO SCH (09:30)
[2016-07-28] MEDS: NYSTATIN SUSP 500000 UNIT/5 ML UDCUP PO SCH (09:30)
[2016-07-28 10:43] VITALS: BP 110/67; PULSE 70; O2SAT 94
[2016-07-28 10:46] LABS: HEMATOCRIT 43.8 % (40.0-51.0); HEMOGLOBIN 15.5 g/dL (13.7-17.5); MEAN CELL HEMOGLOBIN 31.8 pg (27.9-34.1); MEAN CELL HEMOGLOBIN CONCENTR. 35.4 g/dL (32.4-36.7); MEAN CELL VOLUME 89.8 fL (81.5-99.8); RED BLOOD CELL COUNT 4.88 10^6/uL (4.40-6.38); RED CELL DISTRIBUTION WIDTH 13.4 % (11.5-15.2)
--- NOTE | 2016-07-28 13:01 | PCMIDPN ---
Assessment/Plan: RUL PNA, may be related to HH/aspiration, remarkable improvement after 1 day of antibiotics, no longer hypoxia with exertion. Crackles RUL on exam. leukocytosis resolved --keep HOB elevated --complete total 5-7 days Augmentin which patient tolerating well --repeat CXR 3-4 weeks to eval for resolution (sent email to PCP) --reviewed above plans with patient, and Dr. Miranda Subjective: feeling better today no cough no further rigors Objective: Vital Signs Temp Pulse Resp BP Pulse Ox 36.7 C 70 18 110/67 94 07/28/16 08:00 07/28/16 10:40 07/28/16 08:00 07/28/16 10:40 07/28/16 10:40 Laboratory Results 07/28/16 10:30 07/27/16 07/28/16 07/29/16 05:59 05:59 05:59 Intake Total 300 Balance 300 Gen: thin male nontoxic o/p MMM CV: RRR Chest crackles R upper chest, no increased accessory muscle use ICD10 Worksheet Patient Problems: Problems Problem Status Onset Febrile illness, acute Acute
--- NOTE | 2016-07-28 17:37 | GDS ---
[f rep st] DISCHARGE SUMMARY DISCHARGE DIAGNOSES: Include: 1. Acute presumed aspiration pneumonia, right upper lobe. 2. Leukocytosis, secondary to right upper lobe pneumonia. 3. Hiatal hernia, new diagnosis. 4. Adrenal disease. 5. Anxiety. 6. History of Lyme disease and chronic illness. HISTORY OF PRESENT ILLNESS: This 70-year-old male, with a chronic illness secondary to Lyme disease , who presents with complaints of rigors. For details of patient's initial presentation, please see the history and physical dated 07/25/2016. CONSULTATIVE SERVICES: Infectious Disease. PROCEDURES: 07/26/2016, patient had a chest x-ray that showed right upper lobe pneumonia. HOSPITAL COURSE: By issue: 1. Acute right upper lobe pneumonia thought potentially aspiration related to new diagnosis of hiat al hernia. The patient was initiated on Augmentin, oral antibiotics on the consultation of Infectio us Disease, and had resolution of his leukocytosis from 24 to 8.9 on the date of disposition. He wi ll complete a full course. Blood cultures drawn 07/25/2016 remain no growth to date. 2. Adrenal disease. Patient reports being followed closely by a Lyme specialist, who recommends da bianka dosing of hydrocortisone. Cortisol levels were drawn on this patient during this hospital stay, and were found to be slightly low at 4.1, and high in the evenings of 15.5. We will continue his o utpatient regimen per his specialists at disposition. DISCHARGE MEDICATIONS: At the time of disposition, please reference med rec printed 07/28/2016. PENDING STUDIES: Include blood cultures drawn 07/25/2016, which are preliminary, no growth to date. FOLLOWUP APPOINTMENTS: Include with the patient's primary care provider in the next 7-10 days for chapin rai post completion of his antibiotic course, as well as with his Lyme disease specialist, per louie reed predetermined scheduling. I spent greater than 30 minutes in the planning and coordination of this discharge. /[id number]/MODL
[2016-07-31 16:48] LABS: CORTISOL/CREATININE RATIO 273 mcg/g Cr (1.0-119); CORTISONE/CREATININE RATIO 192 mcg/g Cr (12-311); CREATININE CONCENTRATION 99 mg/dL
== END 2016-07-28 14:15 | disposition home or self-care (01) | DRG 178 ==
LOC: F3E 13:52 → OBSVTOIN 07-26 11:42
PROVIDERS: ADMIT Family Medicine; ATTEND Hospitalist
DX: J69.0 Pneumonitis due to inhalation of food and vomit (principal); K44.9 Diaphragmatic hernia without obstruction or gangrene; E27.40 Unspecified adrenocortical insufficiency; F41.9 Anxiety disorder, unspecified; Z86.19 Personal history of other infectious and parasitic diseases
CPT/HCPCS: 82530-90; 82784-90; 83789-90; G0378; J1170

== ENCOUNTER → 2016-09-06 | Outpatient (CLI) | payer OTHER, MEDICARE | LOC: FIMAGING 08:17 | PROVIDERS: ATTEND Surgery | DX: K44.9 Diaphragmatic hernia without obstruction or gangrene (principal); K21.9 Gastro-esophageal reflux disease without esophagitis ==

== ENCOUNTER → 2016-09-11 | Outpatient (CLI) | payer OTHER, MEDICARE | LOC: FIMAGING 19:08 | PROVIDERS: ATTEND Family Medicine | DX: J42 Unspecified chronic bronchitis (principal) ==

== ENCOUNTER 2016-10-30 09:39 | Observation (INO) | payer OTHER, MEDICARE ==
[2016-10-30] MEDS ORDERED: BUPIVACAINE 0.5% 30 ML SDV ONE (13:42)
[2016-10-30] MEDS ORDERED: LIDOCAINE 1% 2 ML INJ ONE (13:43)
--- NOTE | 2016-10-30 14:23 | PDANEPAE ---
ANE History of Present Illness Diaphragmatic hernia ANE Past Medical History - Cardiovascular History Hx Hypertension: No Hx Arrhythmias: No Hx Chest Pain: No Hx Coronary Artery / Peripheral Vascular Disease: No Hx CHF / Valvular Disease: No Hx Palpitations: No - Pulmonary History Hx COPD: No Hx Asthma/Reactive Airway Disease: No Hx Recent Upper Respiratory Infection: No Hx Oxygen in Use at Home: No - Neurologic History Hx Cerebrovascular Accident: No Hx Seizures: No Hx Dementia: No - Endocrine History Hx Diabetes: No - Renal History Hx Renal Disorders: No - Liver History Hx Hepatic Disorders: No - Neurological & Psychiatric Hx Hx Neurological and Psychiatric Disorders: Yes - Cancer History Hx Cancer: No - Congenital Disorder History Hx Congenital Disorders: No - GI History Hx Gastrointestinal Disorders: Yes - Chronic Pain History Chronic Pain: Yes (throughout body from lyme disease) ANE Review of Systems - Exercise capacity METS (RN): 4 METS (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 bike 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) ANE Patient History - Allergies Allergies/Adverse Reactions: No Known Allergies Allergy (Unverified 09/26/13 14:24) - Home Medications Home Medications: Nystatin [Mycostatin] 1 tab PO BID 09/26/13 [Last Taken 07/24/16] Citalopram [CeleXA 20 MG] 20 mg PO DAILY 07/25/16 [Last Taken 07/24/16] Herbals/Supplements -Info Only 1 ea PO DAILY 07/25/16 [Last Taken Unknown] Hydrocortisone [Cortef 10 mg (*)] 10 mg PO DAILY 07/25/16 [Last Taken 07/24/16] LORazepam [Ativan (*)] 0.5 mg PO BID PRN 07/25/16 [Last Taken 07/24/16] Magnesium Hydroxide [Milk of Magnesia] 30 ml PO HS 07/25/16 [Last Taken 07/24/16 ] Nature-Throid T3 48.75mg 48.75 mg PO DAILY 07/25/16 [Last Taken 07/24/16] Zolpidem Tartrate [Ambien 10 mg] 10 mg PO HS PRN 07/25/16 [Last Taken Unknown] Famotidine [Pepcid 20 MG (*)] 20 mg PO BID 10/10/16 [Last Taken Unknown] oxyCODONE IR [Oxycodone Ir (*)] 10 mg PO TID 10/10/16 [Last Taken Unknown] traZODone [traZODONE 100MG (*)] 100 mg PO HS 10/10/16 [Last Taken Unknown] - NPO status NPO Since - Liquids (Date): 10/30/16 NPO Since - Liquids (Time): 08:00 NPO Since - Solids (Date): 10/29/16 NPO Since - Solids (Time): 22:00 - Smoking Hx Smoking Status: Never smoked - Family Anes Hx Family Hx Anesthesia Complications: none ANE Labs/Vital Signs - Vital Signs Blood Pressure: 116/73 Heart Rate: 75 Respiratory Rate: 16 O2 Sat (%): 95 Height: 162.56 cm Weight: 53.07 kg ANE Physical Exam - Airway Neck exam: decreased ROM Mallampati Score: Class 2 - Pulmonary Pulmonary: no respiratory distress, no rales or rhonchi, clear to auscultation - Cardiovascular Cardiovascular: regular rate and rhythym, no murmur, rub, or gallop - ASA Status ASA Status: II
[2016-10-30] MEDS ORDERED: MIDAZOLAM 2 MG/2 ML VIAL IVP ONE (14:28)
[2016-10-30] MEDS ORDERED: LR 1,000 ML IV ONE (14:34)
--- NOTE | 2016-10-30 14:58 | PDHPUP ---
History & Physical Update H&P update statement: This history and physical update is based on an assessment of the patient which was completed after admission or registration (within 24 hours), but prior to the surgery/procedure. H&P update: H&P reviewed & patient examined, no change in patient's condition since H&P completed
[2016-10-30] MEDS ORDERED: CEFAZOLIN 2 GM/DEXTROSE/100 ML BAG IV ONE (14:59)
[2016-10-30] MEDS ORDERED: fentaNYL 100 MCG/2 ML INJ ONE ×4 (15:07→18:04)
[2016-10-30] MEDS ORDERED: ROCURONIUM 50 MG/5 ML VIAL ONE ×2 (15:08→16:01)
[2016-10-30] MEDS ORDERED: PROPOFOL/EMULSION 500 MG/50 ML BOTTLE IV ONE (15:08)
[2016-10-30] MEDS ORDERED: PROPOFOL 200 MG/20 ML VIAL ONE (15:08)
[2016-10-30] MEDS ORDERED: LIDOCAINE 2% 5 ML SDV ONE (15:08)
[2016-10-30] MEDS ORDERED: BUPIVACAINE/EPI 0.5% 30 ML SDV ONE (15:20)
[2016-10-30] MEDS ORDERED: GLYCOPYRROLATE 0.2 MG/1 ML VIAL ONE (15:41)
[2016-10-30] MEDS ORDERED: epHEDrine SULFATE 10 MG/ML SYR ONE (16:20)
[2016-10-30] MEDS ORDERED: SUGAMMADEX SODIUM 200 MG/2 ML VIAL IVP ONE (17:07)
[2016-10-30] MEDS ORDERED: ONDANSETRON 4 MG/2 ML VIAL ONE (17:07)
[2016-10-30] MEDS ORDERED: KETOROLAC 30 MG/1 ML SDV ONE (17:07)
[2016-10-30] MEDS ORDERED: IBUPROFEN 600 MG TAB PO PRN (17:34)
[2016-10-30] MEDS ORDERED: ACETAMINOPHEN 500 MG TAB PO PRN (17:34)
[2016-10-30] MEDS ORDERED: ONDANSETRON 4 MG/2 ML VIAL IVP PRN ×2 (17:34)
[2016-10-30] MEDS ORDERED: NALOXONE HCL 0.4 MG/ML INJ IVP PRN (17:34)
[2016-10-30] MEDS ORDERED: ZOLPIDEM TARTRATE 5 MG TAB PO PRN (17:34)
[2016-10-30] MEDS ORDERED: HYDROmorphONE/DILAUDID 1 MG/ML SYR IVP PRN (17:34)
[2016-10-30] MEDS ORDERED: HYDROCODONE/APAP 5/325 TAB PO PRN (17:34)
--- NOTE | 2016-10-30 17:34 | POSTOPPROG ---
Post Op Note Date of Operation: 10/30/16 Surgeon: Mirza Robertson Delivery Lead: Katie Chi PA-C Anesthesiologist: Dr. Chandler Elizondo Anesthesia: GET(General Endotracheal) Pre-op Diagnosis: paraesophageal hernia Post-op Diagnosis: same Procedure: laparoscopic repair of paraesophageal hernia with Toupe fundoplication Findings: large paraesophageal hernia Inf/Abcess present in the surg proc area at time of surgery?: No EBL: Minimal Complications: None Specimen(s): None
[2016-10-30] MEDS ORDERED: LORazepam 0.5 MG TAB PO PRN (17:40)
[2016-10-30] MEDS: fentaNYL 100 MCG/2 ML INJ IVP PRN ×2 (18:07→18:12)
[2016-10-30] MEDS: METOCLOPRAMIDE 10 MG/2 ML VIAL IVP SCH ×2 (19:39→22:06)
[2016-10-30 20:26] VITALS: RESP 14
[2016-10-30] MEDS ORDERED: traZODone 100 MG TAB PO SCH (21:00)
[2016-10-30] MEDS ORDERED: MAGNESIUM HYDROXIDE 30 ML UDCUP PO PRN (22:04)
[2016-10-30] MEDS: oxyCODONE IR 5 MG TAB PO SCH (22:06)
[2016-10-30] MEDS: FAMOTIDINE 20 MG TAB PO SCH (22:06)
[2016-10-31] MEDS: KETOROLAC 15 MG/1 ML SDV IVP SCH ×2 (00:05→05:54)
[2016-10-31] MEDS: METOCLOPRAMIDE 10 MG/2 ML VIAL IVP SCH ×2 (02:12→05:55)
--- NOTE | 2016-10-31 06:04 | GOP ---
[f rep st] OPERATIVE REPORT DATE OF OPERATION: 10/30/2016 SURGEON: Mirza Robertson MD WINDOWS SERVER ARCHITECT: Katie Chi PA-C. A registered nurse surgical services is standard and necessary and customary for the safe performance of this procedure. ANESTHESIA: General. ANESTHESIOLOGIST: Dr. Elizondo. PREOPERATIVE DIAGNOSIS: Symptomatic paraesophageal hernia. POSTOPERATIVE DIAGNOSIS: Symptomatic paraesophageal hernia. PROCEDURE PERFORMED: Laparoscopic reduction of paraesophageal hernia with Toupet fundoplication. FINDINGS: INDICATIONS: A 71-year-old male with a symptomatic paraesophageal hernia with intermittent incarceration and chronic reflux. Workup discloses significant esophageal dysmotility and areas of mild Sol's esophagus. He is undergoing surgical reduction of his hernia at this time with partial fundoplication. Surgical risks and benefits were discussed in detail with the patient and his including, but not limited to, bleeding, infection, open conversion, bowel injury, nerve injury, persistent reflux, persistent esophageal dysmotility as well as others. All questions were answered. He desires to proceed. DESCRIPTION OF PROCEDURE: General anesthesia was induced. The abdomen was pre- injected with 0.5% Marcaine with epinephrine. A supraumbilical Veress needle was placed followed by a 5 mm trocar. The abdomen was insufflated to 15 mmHg. Four additional 5 mm ports were placed along the upper abdomen. A liver retractor was applied, allowing for exposure of the esophageal hiatus. There was a well-defined hiatal defect with a large paraesophageal hernia. The stomach was reduced back toward the abdominal cavity. The hernia sac was circumferentially dissected away from the diaphragm, allowing for the stomach to be nicely retrieved back into the abdomen and maintained without retraction back up into the mediastinum. The crura dissection was completed bilaterally. The greater curve of the stomach was dissected away from the spleen using the ultrasonic dissector. The GE junction was noted to be relatively preserved. The hiatal defect was closed with 2 posterior placed Ethibond sutures, allowing for excellent diaphragmatic reapposition with good esophageal mobility throughout the closure site. The fundus of the stomach was easily passed behind the esophagus. A 207 degree wrap was completed with multiple interrupted Ethibond sutures. The surrounding omentum was placed over the anterior aspect of the esophagus loosely. Satisfactory hemostasis was assured. Final inspection showed excellent positioning of the stomach within the abdominal cavity without any proximal retraction back into the mediastinum. The esophageal hiatus appeared nicely closed with good mobility. The stomach and esophagus were all noted to be viable and without evidence of a visceral injury. Trocars were removed under direct visualization. The wounds were closed with absorbable suture by Dermabond. The patient was taken to recovery uneventfully. /[id number]/MODL MTDD
[2016-10-31 06:08] VITALS: BP 95/56; PULSE 55; TEMP 98.7; O2SAT 93
--- NOTE | 2016-10-31 08:23 | SOAPPROG ---
SOAP Progress Note Assessment/Plan: Assessment:no overnight complaints. min pain. no nausea. swallowing well. avss. comfortable. abd soft, approp dist. incis clean. s/p lap PEH. doing great. soft diet. resume home meds. home today. Plan: 10/31/16 08:21 Objective: Vital Signs Temp Pulse Resp BP Pulse Ox 37.1 C 55 L 14 95/56 L 93 10/31/16 04:00 10/31/16 04:00 10/31/16 04:00 10/31/16 04:00 10/31/16 04:00 10/30/16 10/31/16 11/01/16 05:59 05:59 05:59 Intake Total 1500 1800 Output Total 80 Balance 1500 1720 ICD10 Worksheet Patient Problems: Problems Problem Status Onset Febrile illness, acute Acute
[2016-10-31] MEDS: oxyCODONE IR 5 MG TAB PO SCH (09:52)
[2016-10-31] MEDS: FAMOTIDINE 20 MG TAB PO SCH (09:53)
--- NOTE | 2016-10-31 14:24 | POSTANESTH ---
Post Anesthetic Evaluation Cardiovascular Status: Normal, Stable Respiratory Status: Normal, Stable Level of Consciousness/Mental Status: Can Participate in Eval, Other, See Comment Pain Control: Adequate, Prn Tx Ordered Nausea/Vomiting Control: Adequate, Prn Tx Ordered Complications Possibly Related to Anesthesia: None Noted (Pt. DCed home. Surgeon progress note stated no nausea. Pain controlled. Dced Pt)
== END 2016-10-31 10:00 | disposition home or self-care (01) ==
LOC: F3E 12:57 → INTOOBSV 12:57 → F3E 18:45
PROVIDERS: ADMIT Surgery; ATTEND Surgery
DX: K44.9 Diaphragmatic hernia without obstruction or gangrene (principal)
CPT/HCPCS: 43281; J0690; J1170; J1885; J2250; J2405; J2704; J2765; J3010

== ENCOUNTER 2017-10-13 11:18 | Emergency (ER) | payer OTHER, MEDICARE ==
[2017-10-13] MEDS ORDERED: NS 1,000 ML IV ONE (12:19)
[2017-10-13 12:38] LABS: PLATELET COUNT 222 10^3/uL (150-400)
--- NOTE | 2017-10-13 13:03 | EDPHY ---
H & P Stated Complaint: L lower quad pain x 2 days, constipation Time Seen by Provider: 10/13/17 12:39 HPI/ROS: CHIEF COMPLAINT: Left lower quadrant pain, constipation HISTORY OF PRESENT ILLNESS: 72-year-old male with chronic Lyme disease and chronic pain presents with left lower quadrant pain and constipation. Onset of crampy left lower quadrant pain yesterday, initially relieved after an enema yesterday. However the pain returned today and is severe. Unrelieved with enema. No associated vomiting or fever. No prior similar symptoms. REVIEW OF SYSTEMS: complete 10 point ROS negative except at noted in the HPI - Medical/Surgical History Hx Asthma: No Hx Chronic Respiratory Disease: No Hx Diabetes: No Hx Cardiac Disease: No Hx Renal Disease: No Hx Cirrhosis: No Hx Alcoholism: No Hx HIV/AIDS: No Hx Splenectomy or Spleen Trauma: No Other PMH: Lyme Disease (BORRELIOSIA) , HIATAL HERNIA,. paraesophageal HERNIA REPAIR, clavicle fracture AND SURGERY, BABESOSIS, BARTONELLA, Von willebrans, diabetes insipidus - Social History Smoking Status: Never smoked - Physical Exam Exam: General Appearance: Alert, appears in pain Eyes: Pupils equal and round, no conjunctival pallor ENT, Mouth: Mucous membranes moist Neck: Normal inspection Respiratory: Lungs are clear to auscultation Cardiovascular: Regular rate and rhythm Gastrointestinal: Abdomen is soft, left upper quadrant tenderness Rectal: No stool in vault Neurological: A&O, nonfocal, normal gait Skin: Warm and dry, no rash Extremities: Normal inspection Psychiatric: Mood and affect normal Constitutional: Initial Vital Signs Temperature (C) 37.0 C 10/13/17 11:30 Heart Rate 76 10/13/17 11:30 Respiratory Rate 18 10/13/17 11:30 Blood Pressure 142/80 H 10/13/17 11:30 O2 Sat (%) 98 10/13/17 11:30 O2 Delivery Mode Room Air Allergies/Adverse Reactions: No Known Allergies Allergy (Unverified 09/26/13 14:24) Home Medications: Medication Instructions Recorded [place] Thyroid 10/13/17 LORazepam 10/13/17 Movantik 10/13/17 oxyCODONE CR 10/13/17 Medical Decision Making - Diagnostics Imaging Results: Imaging Impressions Abdomen CT 10/13/17 13:02 Impression: 1. Constipation with a large amount stool throughout the entire colon. 2. No evidence of bowel obstruction or pneumoperitoneum. 3. A small amount of ascites in the left paracolic gutter. Findings and recommendations discussed with Emergency Department physician, MARTÍN CONNORS at 13:38 hour, 10/13/2017. Final report concurs with initial preliminary interpretation. Imaging: Discussed imaging studies w/ director of search engine marketing Radiologist ED Course/Re-evaluation: This patient presents with left lower quadrant cramping and constipation. CT scan of the abdomen pelvis ordered to rule out diverticulitis. CT scan is unremarkable except for constipation. Soapsuds enema given. Moderate bowel movement after soapsuds enema. [place] better after a bowel movement, will discharge home with GoLYTELY. Differential Diagnosis: Differential diagnosis includes though it is not limited to appendicitis, cholecystitis, diverticulitis, pyelonephritis, bowel perforation, small bowel obstruction. - Data Points Laboratory Results: Laboratory Results 10/13/17 11:40 10/13/17 11:40 10/13/17 10/13/17 11:40 11:40 WBC 7.64 10^3/uL 10^3/uL (3.80-9.50) RBC 4.84 10^6/uL 10^6/uL (4.40-6.38) Hgb 15.8 g/dL g/dL (13.7-17.5) Hct 43.2 % % (40.0-51.0) MCV 89.3 fL fL (81.5-99.8) MCH 32.6 pg pg (27.9-34.1) MCHC 36.6 g/dL g/dL (32.4-36.7) RDW 12.4 % % (11.5-15.2) Plt Count 222 10^3/uL 10^3/uL (150-400) MPV 9.3 fL fL (8.7-11.7) Neut % (Auto) 74.8 % H % (39.3-74.2) Lymph % (Auto) 15.2 % % (15.0-45.0) [place] % (Auto) 8.0 % % (4.5-13.0) Eos % (Auto) 0.8 % % (0.6-7.6) Baso % (Auto) 0.8 % % (0.3-1.7) Nucleat RBC Rel Count 0.0 % % (0.0-0.2) Absolute Neuts (auto) 5.72 10^3/uL 10^3/uL (1.70-6.50) Absolute Lymphs (auto) 1.16 10^3/uL 10^3/uL (1.00-3.00) Absolute Monos (auto) 0.61 10^3/uL 10^3/uL (0.30-0.80) Absolute Eos (auto) 0.06 10^3/uL 10^3/uL (0.03-0.40) Absolute Basos (auto) 0.06 10^3/uL 10^3/uL (0.02-0.10) Absolute Nucleated RBC 0.00 10^3/uL 10^3/uL (0-0.01) Immature Gran % 0.4 % % (0.0-1.1) Immature Gran # 0.03 10^3/uL 10^3/uL (0.00-0.10) Sodium 129 mEq/L L mEq/L (135-145) Potassium 4.5 mEq/L mEq/L (3.3-5.0) Chloride 91 mEq/L L mEq/L (97-110) Carbon Dioxide 23 mEq/l mEq/l (22-31) Anion Gap 15 mEq/L mEq/L (8-16) BUN 13 mg/dL mg/dL (7-23) Creatinine 0.8 mg/dL mg/dL (0.7-1.3) Estimated GFR > 60 Glucose 118 mg/dL H mg/dL (70-100) Calcium 9.0 mg/dL mg/dL (8.5-10.4) Medications Given: Discontinued Medications Sodium Chloride (Ns) 1,000 mls @ 0 mls/hr IV ONCE ONE PRN Reason: Wide Open Stop: 10/13/17 12:20 Last Admin: 10/13/17 12:20 Dose: 1,000 mls Polyethylene Glycol/Electrolytes (Gavilyte - G) 4,000 ml PO ONCE ONE Stop: 10/13/17 13:51 Last Admin: 10/13/17 14:33 Dose: 4,000 ml Departure - Departure Disposition: Home, Routine, Self-Care Clinical Impression: Constipation Qualifiers: Constipation type: unspecified constipation type Qualified Code(s): K59.00 - Constipation, unspecified Condition: Good Instructions: Constipation (ED), Acute Abdominal Pain (ED) Additional Instructions: Return for worsening symptoms or any concerns. Referrals: Jonathan Franco DO [Primary Care Provider] - As per Instructions
[2017-10-13] MEDS ORDERED: IOPAMIDOL (ISOVUE-300) 100 ML BTL ONE (13:08)
[2017-10-13] MEDS ORDERED: PEG 3350/NA SULF,BICARB,CL/KCL (GAVILYTE-G) 4000 ML BTL PO ONE (13:50)
[2017-10-13 14:35] VITALS: BP 130/59
== END 2017-10-13 14:35 | disposition home or self-care (01) ==
DX: K59.00 Constipation, unspecified (principal); E11.9 Type 2 diabetes mellitus without complications
CPT/HCPCS: 74177; 96360; 99285; Q9967